=== PATIENT | female | born 2000 | race Two or more races ===

== ENCOUNTER 2024-01-19 07:22 | Emergency (ER) | payer OTHER ==
[~2024-01-19] VITALS: Ht 160 cm; Wt 48.1 kg
[2024-01-19 07:32] VITALS: BP 95/64; O2SAT 100
[2024-01-19] MEDS ORDERED: KETOROLAC TROMETHAMINE 60 MG VIAL IM STA (08:49)
== END 2024-01-19 08:52 | disposition home or self-care (01) ==
LOC: ER 07:22
DX: M94.0 Chondrocostal junction syndrome [Tietze] (principal); J45.909 Unspecified asthma, uncomplicated; G43.809 Other migraine, not intractable, without status migrainosus